=== PATIENT | male | born 1980 | race African-American/Black ===

== ENCOUNTER 2018-11-09 15:31 | Emergency (ER) | payer MEDICAID, SELFPAY ==
[~2018-11-09] VITALS: Ht 157.5 cm; Wt 97.4 kg
[2018-11-09] MEDS ORDERED: HYDROcodone/APAP 5/325 TABLET PO STA (16:18)
[2018-11-09] MEDS ORDERED: IBUPROFEN 200 MG TABLET PO ONE (16:30)
[2018-11-09] MEDS ORDERED: IBUPROFEN 200 MG TABLET ONE (16:50)
[2018-11-09] MEDS ORDERED: HYDROcodone/APAP 5/325 TABLET ONE (16:50)
[2018-11-09 17:07] VITALS: BP 127/86
== END 2018-11-09 17:19 | disposition home or self-care (01) ==
LOC: ED 17:13
DX: J20.8 Acute bronchitis due to other specified organisms (principal); B96.89 Other specified bacterial agents as the cause of diseases classified elsewhere; J45.41 Moderate persistent asthma with (acute) exacerbation; J45.21 Mild intermittent asthma with (acute) exacerbation; J45.990 Exercise induced bronchospasm; F17.210 Nicotine dependence, cigarettes, uncomplicated
CPT/HCPCS: 71046; 93005; 99283; 99406